=== PATIENT | female | born 1955 | race Caucasian/White ===

== ENCOUNTER 2016-08-15 20:18 | Emergency (ER) | payer OTHER ==
[2016-08-15 21:24] LABS: BILIRUBIN NEGATIVE (NEGATIVE); BLOOD NEGATIVE Ery/uL (NEGATIVE); CLARITY CLEAR (CLEAR); COLOR YELLOW (YELLOW); GLUCOSE (U) TRACE mg/dL (NORMAL); KETONE (U) 1+ (SMALL) mg/dL (NEGATIVE); LEUKOCYTES TRACE Leu/uL (NEGATIVE); NITRITE POSITIVE (NEGATIVE); PROTEIN TRACE (LOW) mg/dL (NEGATIVE); SPECIFIC GRAVITY 1.015 (1.001-1.030)
[2016-08-15 21:29] LABS: BACTERIA TRACE; URINARY WBC RARE
[2016-08-15 22:19] LABS: BASOPHIL 0.2 % (0-2); EOSINOPHIL 1.6 % (0-5); HGB 12.2 g/dl (12.5-16.0); LYMPHOCYTE 29.5 % (15-48); MCH 29.9 pg (25.0-31.0); MCHC 33.9 g/dL (32.0-36.0); MCV 88.2 fL (78.0-100.0); MONOCYTE 8.6 % (0-12); MPV 10.8 fL (6.0-9.5); NEUTROPHIL 60.1 % (41-80); PLT 267 K/uL (150-400); RBC 4.08 M/uL (4.20-5.40); RDW 12.8 % (11.5-14.0); WBC 17.4 K/uL (4.0-10.5)
[2016-08-15 22:36] LABS: CREATININE 1.4 mg/dL (0.5-1.0); POTASSIUM 4.2 mmol/L (3.5-5.1)
== END 2016-08-15 22:10 | disposition home or self-care (01) ==
LOC: FER 20:18
PROVIDERS: Emergency Medicine
DX: N13.2 Hydronephrosis with renal and ureteral calculous obstruction (principal); N39.0 Urinary tract infection, site not specified; E11.9 Type 2 diabetes mellitus without complications; Z79.84 Long term (current) use of oral hypoglycemic drugs
CPT/HCPCS: 36415; 80048; 81001; 85025; 87088; J1170; J1885